=== PATIENT | female | born 1940 | race Caucasian/White ===

== ENCOUNTER 2021-06-19 17:10 | Outpatient (REF) | payer MEDICARE, OTHER, SELFPAY ==
[2021-06-19 18:22] LABS: Influenza A PCR NEGATIVE (Negative); Influenza B PCR NEGATIVE (Negative); Resp Syncy Virus RNA Qual PCR NEGATIVE (Negative); SARS COV2 PCR INHOUSE NEGATIVE (Negative)
== END 2021-06-19 17:11 | disposition home or self-care (01) ==
LOC: HO.LNP 17:10
PROVIDERS: Visit Provider Physician Assistant Medical
DX: Z20.822 Contact with and (suspected) exposure to COVID-19 (principal); J06.9 Acute upper respiratory infection, unspecified
CPT/HCPCS: 0241U

== ENCOUNTER 2023-06-21 10:31 | Outpatient (AMB) | payer OTHER, MEDICARE, SELFPAY ==
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
[2023-06-21 10:53] VITALS: BP 140/80; PULSE 100; TEMP 36.3; O2SAT 99; BMI 30.6
== END 2023-06-21 11:29 | disposition home or self-care (01) ==
PROVIDERS: PCP Internal Medicine; Visit Provider Internal Medicine
DX: S80.11XA Contusion of right lower leg, initial encounter (principal)
CPT/HCPCS: 99213

== ENCOUNTER 2023-06-27 14:54 | Outpatient (AMB) | payer OTHER, MEDICARE, SELFPAY ==
[2023-06-27 16:07] VITALS: BP 140/72; PULSE 66; TEMP 36.5; O2SAT 96; BMI 30.1
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
== END 2023-06-27 16:30 | disposition home or self-care (01) ==
PROVIDERS: PCP Internal Medicine; Visit Provider Internal Medicine
DX: S20.219A Contusion of unspecified front wall of thorax, initial encounter (principal)
CPT/HCPCS: 99213

== ENCOUNTER 2023-06-28 08:09 | Outpatient (REF) | payer MEDICARE, OTHER, SELFPAY ==
--- NOTE | ~2023-06-28 | XR_ITS ---
EXAMINATION: XR RIBS, RIGHT CLINICAL INFORMATION: Contusion COMPARISON: None available. TECHNIQUE: 3 views of the right ribs were obtained. Chest one view. FINDINGS: Lungs are clear. No consolidation, pneumothorax, or pleural effusion. The cardiomediastinal silhouette is enlarged. The pulmonary vasculature is normal. Osseous structures are unremarkable. Multiple views of right ribs reveal no visible rib fracture or bony abnormality.. XR/XR ribs RT min 3V w CXR1V IMPRESSION: 1. Unremarkable chest exam. 2. Unremarkable right rib exam. No visible rib fracture seen.
== END 2023-06-28 08:10 | disposition home or self-care (01) ==
LOC: HO.HMGCX 08:09
PROVIDERS: Visit Provider Internal Medicine
DX: S20.219A Contusion of unspecified front wall of thorax, initial encounter (principal); X58.XXXA Exposure to other specified factors, initial encounter; Y93.9 Activity, unspecified; Y92.9 Unspecified place or not applicable; Y99.9 Unspecified external cause status
CPT/HCPCS: 71101

== ENCOUNTER 2023-12-12 08:40 | Outpatient (AMB) | payer MEDICARE, OTHER, SELFPAY ==
[2023-12-12 09:17] VITALS: BP 142/76; PULSE 68; TEMP 36.6; O2SAT 96
--- NOTE | 2023-12-12 09:17 | AM.OFFWIN_ITS ---
Intake Vital Signs 12/12/23 09:17 Height 5 ft 4 in Weight 175 lb BMI 30.0 BP 142/76 H Blood Pressure Location Lt brachial Position Sitting Pulse 68 Pulse Source Pulse Oximeter Temp 97.8 F Temp Source Temporal Artery Scan Pulse Oximetry (%) 96 Oxygen Delivery Method Room Air Intake Visit Reasons: Left Pinkie cannot straighten ([phone]) Intake Note: pt is here for left pinkie on left hand cannot straighten denies any injury just swollen Patient Tobacco Use Status: Never used Tobacco Allergies No Known Allergies Allergy (Mild, Verified 12/12/23 09:18) NONE Do you need a note to return to daycare/school/sports/work: No HPI HPI Comments History of Present Illness Details Patient presents to the walk-in today for sick visit Reports 2 days ago she was opening a drawer with her right hand and felt something snap. Since then she has been unable to fully extend the tip of her right little finger. Denies pain PFSH Social History (Updated 06/27/23 @ 16:10 by Beckie Maurice [facility]) Household Members: None Alcohol intake: never Patient Tobacco Use Status: Never used Tobacco Review of Systems Const All systems reviewed & are unremarkable except as noted in HPI and below Physical Exam Vital Signs: Last Vital Signs Temp 97.8 F 12/12/23 09:17 Pulse 68 12/12/23 09:17 BP 142/76 H 12/12/23 09:17 Pulse Ox 96 12/12/23 09:17 Oxygen Delivery Method Room Air 12/12/23 09:17 BMI result Body Mass Index 30.0 General: awake, alert, oriented. Answers questions appropriately. Fully engaged in examination. Skin: warm, dry, intact HEENT: Normocephalic. Hearing intact. Cardiac: External chest normal in appearance. Respiratory: No cough, audible wheezing or stridor. Abdomen: without gross distension. MS: Right little finger flexed at distal interphalangeal joint, unable to extend. non-tender to palpation and rom. Neurological: Oriented to person, place, time and situation. Thought process intact. No gait abnormalities appreciated. Psychiatric: Appropriate mood and affect. Good judgment and insight. Results Reviewed Results Reviewed: Right little finger x-ray ordered independently reviewed: No fracture or dislocation. Assessment & Plan Assessment & Plan (1) Mallet deformity of little finger: Code(s): M20.019 - Mallet finger of unspecified finger(s) Plan X-ray ordered independently reviewed: No fracture or dislocation Splint applied to distal right little finger. Patient advised on use. Wear until evaluated by orthopedics Referral placed for Orthopedics Orders: Referrals Orthopedics Referral M20.019 - Mallet finger of unspecified finger(s) Coding Level of Care Code Est Pt Level 4 (09389) Diagnoses Mallet deformity of little finger M20.019
== END 2023-12-12 10:13 | disposition home or self-care (01) ==
PROVIDERS: PCP Internal Medicine; Visit Provider Registered Nurse Emergency
DX: M20.011 Mallet finger of right finger(s) (principal)
CPT/HCPCS: 99213

== ENCOUNTER 2023-12-12 09:44 | Outpatient (REF) | payer MEDICARE, OTHER, SELFPAY ==
--- NOTE | ~2023-12-12 | XR_ITS ---
EXAMINATION: XR FINGER, RIGHT CLINICAL INFORMATION: Left digit pain after injury COMPARISON: None available. TECHNIQUE: 2 views of the right fifth digit. FINDINGS: Some mild degenerative changes are present at the interphalangeal joints with some small periarticular calcifications seen most prominent at the DIP joint of the fourth digit. There is a flexion deformity at the DIP joint of the fifth digit with some mild lateral angulation. No gross dislocation is seen. There is some minimal irregularity at the base of the distal phalanx of the fifth digit on its medial aspect but a definite fracture is not seen on the included views. XR/XR finger RT min 2V IMPRESSION: Flexion deformity at the DIP joint of the fifth digit with some mild lateral angulation. No definite fracture is seen although there is some mild deformity at the base of the distal phalanx of the fifth digit as described above. If a fracture is suspected additional views may be of value.
== END 2023-12-12 09:45 | disposition home or self-care (01) ==
LOC: HO.HMGCX 09:44
PROVIDERS: PCP Internal Medicine; Visit Provider Registered Nurse Emergency
DX: S69.91XA Unspecified injury of right wrist, hand and finger(s), initial encounter (principal); X58.XXXA Exposure to other specified factors, initial encounter; Y93.9 Activity, unspecified; Y92.9 Unspecified place or not applicable; Y99.9 Unspecified external cause status
CPT/HCPCS: 73140

== ENCOUNTER 2024-01-06 07:33 | Outpatient (AMB) | payer MEDICARE, OTHER, SELFPAY ==
--- NOTE | 2024-01-06 08:12 | A.OFFVIS_ITS ---
Intake Visit Reasons: New Pt - left pinky finger pain Intake Note: Jodi is a 83 year old right hand dominant female who presents today as a new patient for a evaluation of her left pinky finger pain. No hx of injury. Patient reports that she is unable to straighten her finger due to swelling. She states that her pain started about a month ago. Currently is doing a little bit better. Allergies No Known Allergies Allergy (Mild, Verified 01/06/24 08:14) NONE HPI HPI New Pt - left pinky finger pain: Details: 83-year-old right hand dominant female who presents in the office today, as a new patient, for an evaluation of right hand little digit pain. Patient presented to the [facility] on 12/12/2023 status post opening a drawer when the patient claims to have felt a snap. X-rays of the right hand were obtained. She was placed in a splint on the distal right little finger. While in the office today the patient reports no injury to the right hand. She states she is unable to straighten her finger due to swelling. She reports the patient began about a month ago, in 11/2023. She reports she is currently doing a little better. [facility] Social History (Updated 06/27/23 @ 16:10 by Beckie Maurice [facility]) Household Members: None Alcohol intake: never Patient Tobacco Use Status: Never used Tobacco Review of Systems Const All systems reviewed & are unremarkable except as noted in HPI and below Physical Exam Const General: cooperative and no acute distress Orientation/consciousness: patient oriented x3 Resp Effort & Inspection: normal respiratory effort and able to speak in complete sentences Cardio Peripheral pulses: Peripheral pulses 2+ throughout Skin General skin exam: no rashes or lesions noted Neuro General: patient oriented x3 Extrem Other: Right hand: Right little finger mallet deformity at the DIP. Sensation intact. Capillary refill is brisk. Assessment & Plan Assessment & Plan (1) Mallet deformity of little finger: Code(s): M20.019 - Mallet finger of unspecified finger(s) Category: Medical Plan Ms. Sánchez is an 83-year-old right hand dominant female who presents in the office today, as a new patient, for an evaluation of right hand little digit pain. Patient presented to the [facility] on 12/12/2023 status post opening a drawer when the patient claims to have felt a snap. X-rays of the right hand were obtained. She was placed in a splint on the distal right little finger. While in the office today the patient reports no injury to the right hand. She states she is unable to straighten her finger due to swelling. She reports the patient began about a month ago, in 11/2023. She reports she is currently doing a little better. Patient will be placed in a stack splint, off the shelf, that she should remain in at all time. Patient was educated if she accidentally comes out of or by choice takes off the splint the process will start over for an additional 6 weeks to complete a full 6 weeks of immobilization. She was educated on how to wash her right hand and how to dry while making sure not be bend the finger. Follow up will be in 4 weeks to check her progress, or sooner if needed. X-rays of the right fifth digit, obtained on 12/12/2023, revealed: Flexion deformity at the DIP joint of the fifth digit with some mild lateral angulation. No definite fracture is seen although there is some mild deformity at the base of the distal phalanx of the fifth digit as described above. If a fracture is suspected additional views may be of value. Patient Instructions: Scribed by Rafaela Morris medical parasitologist, for Ariana Howard PA-C on 01/06/2024 at 7:47 am, EST. Coding Level of Care Code New Pt Level 4 (32197) Diagnoses Mallet deformity of little finger M20.019
== END 2024-01-06 08:39 | disposition home or self-care (01) ==
PROVIDERS: PCP Internal Medicine; Visit Provider Physician Assistant
DX: M20.012 Mallet finger of left finger(s) (principal)
CPT/HCPCS: 99204

== ENCOUNTER → 2024-01-06 07:33 | Outpatient (BNVA) | payer MEDICARE, OTHER, SELFPAY | PROVIDERS: PCP Internal Medicine; Visit Provider Physician Assistant | DX: M20.012 Mallet finger of left finger(s) (principal) | CPT/HCPCS: 99202 ==

== ENCOUNTER 2024-02-03 07:58 | Outpatient (AMB) | payer MEDICARE, OTHER, SELFPAY ==
--- NOTE | 2024-02-03 08:00 | MHC.OFFVIS ---
Vital Signs 02/03/24 08:00 Height 5 ft 4 in Weight 175 lb BMI 30.0 Intake Visit Reasons: OV-left pinky finger pain-follow up Intake Note: Jodi is a 83 year old right hand dominant female who presents today as a new patient for a follow up of her right little finger Mallet deformity. Patient reports she is doing a little better. She has been using her mallet finger splint which helped. Allergies No Known Allergies Allergy (Mild, Verified 02/03/24 08:00) NONE HPI HPI OV-left pinky finger pain-follow up: Details: 84-year-old right hand dominant female who presents in the office today for a follow-up of a right little finger mallet finger deformity, which occurred on status post opening a drawer. I last saw the patient in the office on 01/06/2024 when she was placed in a stack splint for 6 weeks with the instructions to not remove or allow the splint to come off. While in the office today the patient reports she is doing a little better. She states she has been using the mallet finger splint which has been helping. [facility] Social History Household Members: None Alcohol intake: never Patient Tobacco Use Status: Never used Tobacco Review of Systems Const All systems reviewed & are unremarkable except as noted in HPI and below Physical Exam Vital Signs: BMI result Body Mass Index 30.0 Const General: cooperative, healthy appearing and no acute distress Orientation/consciousness: patient oriented x3 Resp Effort & Inspection: normal respiratory effort and able to speak in complete sentences Cardio Rate: regular rate Peripheral pulses: Peripheral pulses 2+ throughout GI Palpation (GI): Soft to palpation Skin General skin exam: no rashes or lesions noted Lesions: no lesions Rashes: no rashes Neuro General: patient oriented x3 Extrem Other: Right hand: Right little finger in stax splint. Slight mallet deformity at the DIP but much improed from the last exam. Sensation intact. Capillary refill is brisk. Assessment & Plan Assessment & Plan (1) Mallet deformity of little finger: Comment: Right little finger. Code(s): M20.019 - Mallet finger of unspecified finger(s) Category: Medical Plan Ms. Sánchez is a 84-year-old right hand dominant female who presents in the office today for a follow-up of a right little finger mallet finger deformity, which occurred on status post opening a drawer. I last saw the patient in the office on 01/06/2024 when she was placed in a stack splint for 6 weeks with the instructions to not remove or allow the splint to come off. While in the office today the patient reports she is doing a little better. She states she has been using the mallet finger splint which has been helping. The patient has been extremely compliant with the stack splint and has shown improvement with her mallet deformity. She is currently at 3.5 weeks of treatment. She will continue to wear the stack splint at all times for an additional 2.5 weeks. At her next follow-up I anticipate she will begin to work with occupational therapy on ROM. Follow-up will be in 2.5 weeks, or sooner if needed. Patient Instructions: Scribed by Rafaela Morris biomedical engineering technologist, for Ariana Howard PA-C on 02/03/2024 at 8:04 am, EST. Coding Level of Care Code Est Pt Level 3 (75019) Diagnoses Mallet deformity of little finger M20.019
== END 2024-02-03 09:05 | disposition home or self-care (01) ==
PROVIDERS: PCP Internal Medicine; Visit Provider Physician Assistant
DX: M20.011 Mallet finger of right finger(s) (principal)
CPT/HCPCS: 99213

== ENCOUNTER → 2024-02-03 07:58 | Outpatient (BNVA) | payer MEDICARE, OTHER, SELFPAY | PROVIDERS: PCP Internal Medicine; Visit Provider Physician Assistant | DX: M20.012 Mallet finger of left finger(s) (principal) | CPT/HCPCS: 99212 ==

== ENCOUNTER 2024-02-16 09:41 | Outpatient (AMB) | payer MEDICARE, OTHER, SELFPAY ==
--- NOTE | 2024-02-16 10:05 | A.OFFVIS_ITS ---
Vital Signs 02/16/24 10:05 Height 5 ft 4 in Weight 175 lb BMI 30.0 Intake Visit Reasons: OV - right mallet pinky finger Intake Note: Jodi is a 83 year old right hand dominant female who presents today as a new patient for a follow up of her right little finger Mallet deformity. Patient reports she is doing well, no pain or discomfort. Allergies No Known Allergies Allergy (Mild, Verified 02/16/24 10:08) NONE HPI HPI OV - right mallet pinky finger: Details: 84-year-old right hand dominant female who presents in the office today for a follow-up of a right little finger mallet finger deformity, which occurred on status post opening a drawer. I last saw the patient in the office on 02/03/2024 when she was instructed to continue to wear the stack splint for an additional 2.5 weeks. While in the office today the patient reports she is doing well with no pain or discomfort in the office today. [facility] Social History Household Members: None Alcohol intake: never Patient Tobacco Use Status: Never used Tobacco Review of Systems Const All systems reviewed & are unremarkable except as noted in HPI and below Physical Exam Vital Signs: BMI result Body Mass Index 30.0 Const General: cooperative, healthy appearing and no acute distress Orientation/consciousness: patient oriented x3 Resp Effort & Inspection: normal respiratory effort and able to speak in complete sentences Cardio Rate: regular rate Peripheral pulses: Peripheral pulses 2+ throughout GI Palpation (GI): Soft to palpation Skin General skin exam: no rashes or lesions noted Lesions: no lesions Rashes: no rashes Neuro General: patient oriented x3 Extrem Other: Right hand: Right little finger in stax splint. DIP is fully extended. Sensation intact. Capillary refill is brisk. Assessment & Plan Assessment & Plan (1) Mallet deformity of little finger: Comment: Right little finger. Code(s): M20.019 - Mallet finger of unspecified finger(s) Category: Medical Plan Ms. Sánchez is an 84-year-old right hand dominant female who presents in the office today for a follow-up of a right little finger mallet finger deformity, which occurred on status post opening a drawer. I last saw the patient in the office on 02/03/2024 when she was instructed to continue to wear the stack splint for an additional 2.5 weeks. While in the office today the patient reports she is doing well with no pain or discomfort in the office today. The patient will be referred to occupational therapy to work on ROM and strengthening. She would like to attend OT in [place]. Follow-up will be PRN, or sooner if needed. Orders: Orders OT Evaluation and Treatment Today M20.019 - Mallet finger of unspecified finger(s) Patient Instructions: Scribed by Rafaela Morris medical support assistant, for Ariana Howard PA-C on 02/16/2024 at 9:45 am, EST. Coding Level of Care Code Est Pt Level 3 (00198) Diagnoses Mallet deformity of little finger M20.019
== END 2024-02-16 10:22 | disposition home or self-care (01) ==
PROVIDERS: PCP Internal Medicine; Visit Provider Physician Assistant
DX: M20.019 Mallet finger of unspecified finger(s) (principal)
CPT/HCPCS: 99213

== ENCOUNTER → 2024-02-16 09:41 | Outpatient (BNVA) | payer MEDICARE, OTHER, SELFPAY | PROVIDERS: PCP Internal Medicine; Visit Provider Physician Assistant | DX: M20.011 Mallet finger of right finger(s) (principal) | CPT/HCPCS: 99212 ==

== ENCOUNTER 2024-03-06 07:52 | Outpatient (AMB) | payer MEDICARE, OTHER, SELFPAY ==
--- NOTE | 2024-03-06 08:01 | MHC.OFFWIV ---
Intake Vital Signs 03/06/24 08:03 Height 5 ft 4 in Weight 183 lb BMI 31.4 BP 128/70 Blood Pressure Location Rt brachial Position Sitting Pulse 85 Pulse Source Pulse Oximeter Temp 99.0 F Temp Source Oral Pulse Oximetry (%) 97 Oxygen Delivery Method Room Air Intake Visit Reasons: EP sore throat cough slight fever Intake Note: pt here c/o sore throat, cough, fever. Started yesterday Patient Tobacco Use Status: Never used Tobacco Allergies No Known Allergies Allergy (Mild, Verified 03/06/24 08:02) NONE Do you need a note to return to daycare/school/sports/work: No HPI HPI Comments History of Present Illness Details 84-year-old female presents today complaining of a mild fever cough myalgias. She states she was exposed to COVID 2 days ago. She denies any chest pain or shortness of breath denies nausea vomiting or diarrhea [facility] Social History Household Members: None Alcohol intake: never Patient Tobacco Use Status: Never used Tobacco Review of Systems Const All systems reviewed & are unremarkable except as noted in HPI and below Eyes Reports no additional complaints ENT Reports nasal congestion Card Reports no additional complaints Resp Reports cough (Mild) GI Reports no additional complaints Reports no additional complaints Musc Reports other (Mild myalgias) Skin/Breast Reports system reviewed and no additional complaints, except as documented Neuro Reports no additional complaints Physical Exam Vital Signs: Last Vital Signs Temp 99.0 F 03/06/24 08:03 Pulse 85 03/06/24 08:03 BP 128/70 03/06/24 08:03 Pulse Ox 97 03/06/24 08:03 Oxygen Delivery Method Room Air 03/06/24 08:03 BMI result Body Mass Index 31.4 Const General: healthy appearing and no acute distress HEENT Head: Yes normal to inspection, Yes normocephalic and Yes atraumatic Ears: hearing grossly normal bilaterally, external ears normal, TM's normal bilaterally and EAC's normal General nose exam: Normal external nose present Face and sinus: Yes normal facial exam and Yes sinuses nontender Throat: Yes posterior oropharynx normal Resp Effort & Inspection: normal respiratory effort Auscultation: clear to auscultation bilaterally Cardio Rate: regular rate Rhythm: regular rhythm Heart sounds: S1 normal heart sound present and S2 normal heart sound present Results AMB Rapid Strep AMB Rapid Strep Negative Last Edit by Maximiliano Adler CMA on 03/06/24 08:34 Assessment & Plan Assessment & Plan (1) Exposure to COVID-19 virus: Code(s): Z20.822 - Contact with and (suspected) exposure to COVID-19 Plan: COVID PCR was sent to the lab. The patient was given Paxlovid. She will report to the ER if shortness of breath or chest pain occur. Plan See plan Orders: Orders SARS-CoV2/FLU/RSV Today R05.9 - Cough, unspecified AMB Rapid Strep Screen Today Z13.9 - Encounter for screening, unspecified Medications: New nirmatrelvir-ritonavir 300 mg (150 mg x 2)-100 mg (Paxlovid) take TWO 150 mg tablets of nirmatrelvir with ONE 100 mg tablet of ritonavir twice daily for 5 days PO 30 ea 0RF Coding Level of Care Code Est Pt Level 3 (73840) Diagnoses Exposure to COVID-19 virus Z20.822
[2024-03-06 08:03] VITALS: BP 128/70; PULSE 85; TEMP 37.2; O2SAT 97; BMI 31.4
== END 2024-03-06 09:01 | disposition home or self-care (01) ==
PROVIDERS: PCP Internal Medicine; Visit Provider Physician Assistant Medical
DX: J02.9 Acute pharyngitis, unspecified (principal); R05.9 Cough, unspecified; Z20.822 Contact with and (suspected) exposure to COVID-19
CPT/HCPCS: 87880; 99213

== ENCOUNTER 2024-03-06 10:24 | Outpatient (REF) | payer MEDICARE, OTHER, SELFPAY ==
[2024-03-06 11:26] LABS: Influenza A PCR NEGATIVE (Negative); Influenza B PCR NEGATIVE (Negative); Resp Syncy Virus RNA Qual PCR NEGATIVE (Negative); SARS COV2 PCR INHOUSE POSITIVE (Negative)
== END 2024-03-06 10:25 | disposition home or self-care (01) ==
LOC: HO.LNP 10:24
PROVIDERS: Visit Provider Physician Assistant Medical
DX: R05.9 Cough, unspecified (principal); Z13.9 Encounter for screening, unspecified
CPT/HCPCS: 0241U

== ENCOUNTER 2024-03-13 08:00 | Outpatient (RCR) | payer MEDICARE, OTHER, SELFPAY ==
--- NOTE | 2024-02-22 16:37 | MHC.OT.EP ---
[address] [phone] Occupational Therapy Plan of Care Patient Name: Jodi Sánchez Date of Evaluation: 02/22/24 Diagnosis: R SF Mallet injury Pain Location: SF/ stiff Pain Score: 1 Pain Scale Used: Numeric (0 - 10) Aggravating Factors: When it gets caught Alleviating Factors: Assessment: Pt is an 82 yr old R hand dominant female who reports injuring the DIP J Of her R SF on 12/11/23 when she was opening/ closing a [employer]om[employer] maker her kitchen. The next day she went to [facility] and was dx w/ a mallet finger injury. She reports she has been splinting the tip of her SF and has most recently began to wean from it. She has been referred to skilled OT therapy for increased ROM of her digit, strengthening, and increased functional use of her R hand Frequency and Duration: The patient will be seen 1 x a week for 4 weeks (to begin in 2.5 weks) Short Term Goals: Pt will be compliant w/ orthoses wear/ care Pt will be complaint w/ her HEP Pt's lag of her DIP J Will improve to -20 Fpc Goals: Pt will have a DASH <10 Pt will report using her R hand to carry her groceries w/ out difficulty Pt will make a composite fist Treatment Plan: Therapeutic Exercise Therapeutic Activity Home Exercise Program Splinting Neuro Re-ed Patient Education Desensitization/Sensory Re-ed Edema Control ADL Training Ultrasound NMES Iontophoresis Paraffin Fluidotherapy MHP Cold Packs Joint Mobilization Soft Tissue Mobilization Kinesiotaping Other (see comments) Pt will continue another 2 weeks w/ splinting due to 40 DIP J lag and will return to therapy at that time for strengthening and increased AROM Electronically Signed By: Sloane Rojas OTR/L Please Sign and return to therapist. Thank you once again for your referral.
== END 2024-03-13 09:36 | disposition home or self-care (01) ==
LOC: HO.OT 08:00
PROVIDERS: PCP Internal Medicine; Visit Provider Physician Assistant
DX: M20.011 Mallet finger of right finger(s) (principal)
CPT/HCPCS: 97035; 97110; 97165; 97535; 97760

== ENCOUNTER 2024-04-09 08:34 | Outpatient (AMB) | payer MEDICARE, OTHER, SELFPAY ==
--- NOTE | 2024-04-09 08:34 | MHC.OFFWIV ---
Intake Vital Signs 04/09/24 08:35 Height 5 ft 4 in Weight 183 lb BMI 31.4 BP 122/70 Blood Pressure Location Lt brachial Position Sitting Pulse 68 Pulse Source Pulse Oximeter Pulse Oximetry (%) 98 Oxygen Delivery Method Room Air Intake Visit Reasons: EP- RT thumb nail ripped off Intake Note: Patient here for right thumb nail ripped off on tuesday night while hanging something up in a closet. Patient Tobacco Use Status: Never used Tobacco Allergies No Known Allergies Allergy (Mild, Verified 04/09/24 08:35) NONE Do you need a note to return to daycare/school/sports/work: No HPI HPI Comments History of Present Illness Details Patient is an 84-year-old female complaining of her left thumbnail coming off. She states she injured it in [place] a year ago and it has been falling off ever since. She has been cleaning it with alcohol wipes every day to make sure it does not get infected. She denies any changes in her range of motion of the thumb or any pain in the thumb. She has asking me to remove it today. [facility] Social History Household Members: None Alcohol intake: never Patient Tobacco Use Status: Never used Tobacco Review of Systems Const All systems reviewed & are unremarkable except as noted in HPI and below Physical Exam Vital Signs: Last Vital Signs Pulse 68 04/09/24 08:35 BP 122/70 04/09/24 08:35 Pulse Ox 98 04/09/24 08:35 Oxygen Delivery Method Room Air 04/09/24 08:35 BMI result Body Mass Index 31.4 Const General: cooperative, healthy appearing, comfortable, no acute distress and well developed Orientation/consciousness: patient oriented x3 Limitations: no limitations HEENT Head: Yes normal to inspection Eyes General: appearance normal, both eyes and all related structures Neck Neck: Yes normal visual inspection and Yes full ROM Resp Effort & Inspection: normal respiratory effort and able to speak in complete sentences Skin General skin exam: no rashes or lesions noted Neuro General: patient oriented x3 Extrem Right upper extremity: Extremity exam: right hand (thumb nail left hand 3/4 off nailbed, attached @base, surrounding erythema) Details: neuromotor exam normal, vascular exam Details: normal capillary refill and normal ROM of fingers Office Procedures Nail I&D/Excision Details: left thumbnail: performed digital block with 1% lidocaine, once fully numb, used #10 scalpel to remove all the nail that was detatched. Left the base of the nail intact as it was not damaged [id number] of nail plate, partial or completed, single Procedure code (CPT) selection complete Assessment & Plan Assessment & Plan (1) Nail avulsion, finger: Code(s): S61.309A - Unspecified open wound of unspecified finger with damage to nail, initial encounter Qualifiers: Encounter type: initial encounter Qualified Code(s): S61.309A - Unspecified open wound of unspecified finger with damage to nail, initial encounter Plan: Removed as much as the nail as we could and recommended she follow up with her primary care doctor to get a referral to Dermatology to see about removing the rest of the nail and nail bed damage. Plan see above Coding Level of Care Code New Pt Level 4 (52419) Diagnoses Avulsion of fingernail, initial encounter S61.309A Encounter type: initial encounter CPT Codes I&D Nail Bed/Hematoma - CPT: 66971-[id number] of nail plate, partial or completed, single ([id number])
[2024-04-09 08:35] VITALS: BP 122/70; PULSE 68; O2SAT 98; BMI 31.4
== END 2024-04-09 09:26 | disposition home or self-care (01) ==
PROVIDERS: PCP Internal Medicine; Visit Provider Physician Assistant
DX: S61.102A Unspecified open wound of left thumb with damage to nail, initial encounter (principal)
CPT/HCPCS: 11730; 99214